=== PATIENT | female | born 1950 | race Caucasian/White ===

== ENCOUNTER → 2022-05-20 11:25 | Outpatient (BNVA) | payer MEDICARE, OTHER, SELFPAY | PROVIDERS: PCP Internal Medicine; Visit Provider Psychiatry & Neurology Neurology | DX: G47.33 Obstructive sleep apnea (adult) (pediatric) (principal) | CPT/HCPCS: 99212 ==

== ENCOUNTER 2023-05-14 09:24 | Outpatient (AMB) | payer MEDICARE, OTHER, SELFPAY ==
--- NOTE | 2023-05-14 09:29 | A.OFFVIS_ITS ---
Intake Vital Signs 05/14/23 09:31 Height 5 ft Weight 154 lb 4 oz BMI 30.1 BP 138/92 H Blood Pressure Location Rt brachial Position Sitting Respiration 16 Pulse 81 Pulse Source Pulse Oximeter Pulse Oximetry (%) 96 Oxygen Delivery Method Room Air Intake Visit Reasons: 1yr f/u RUSSELL - confirmed Intake Note: Pt presents to the office for 1 year follow up for RUSSELL. She reports shes feeling well. She stopped using her CPAP for a few weeks in February after surgery, she had a hernia repair. Residential Real Estate Assistant Required: No Allergies cat dander Allergy (Mild, Verified 05/14/23 09:30) Unknown codeine Adverse Reaction (Intermediate, Verified 05/14/23 09:30) Nausea and Vomiting erythromycin base Adverse Reaction (Intermediate, Verified 05/14/23 09:30) Nausea and Vomiting HPI HPI Comments History of Present Illness Details 72y/o female with sleep apnea comes fo r follow up. She is complaint with CPAP . I do not have the compliance report today Sleeps better with CPAP and daytime functioning has improved. Leg movements are better. [facility] Medical History HTN (hypertension) Surgical History (Updated 05/14/23 @ 09:37 by Kinga Saavedra CMA) History of cataract surgery H/O hernia repair Hx of appendectomy H/O: hysterectomy H/O lumpectomy Family History Father HTN (hypertension) Thyroid disease Mother HTN (hypertension) Heart disease Breast cancer Family/Other HTN (hypertension) Social History Alcohol intake: current Alcohol intake frequency: holidays/special occasions only Patient Tobacco Use Status: Former Tobacco user Quit Date: 1988 Questionnaire Short SAQLI Sleep Heart Health Study (Short SAQLI) How much of the time have you had to push yourself to remain alert during a typical day (e.g. work, school, childcare, housework)?: A small amount How often have you had to use all of your energy to accomplish your most important activity (e.g. work, school, childcare, housework)?: Never How much difficulty have you had finding the energy to do other activities (e.g. exercise, relaxing activities)?: No difficulty How much difficulty have you had fighting to stay awake?: A small amount How much of a problem has it been to be told that your snoring is irritating?: I do not snore How much of a problem have frequent conflicts or arguments been?: No problem How often have you looked for excuses for being tired?: Never How often have you not wanted to do things with your family and/or friends: Never How often have you felt depressed, down or hopeless?: Never How often have you been impatient?: A small amount of the time How much of a problem has it been to cope with every day issues?: No problem How much of a problem have you had with decreased energy?: No problem How much of a problem have you had with fatigue?: A small problem How much of a problem have you have waking up feeling refreshed?: No problem Total Score: 4 Review of Systems ENT Reports Normal hearing present Neuro Reports Normal hearing present Physical Exam Vital Signs: Last Vital Signs Pulse 81 05/14/23 09:31 Resp 16 05/14/23 09:31 BP 138/92 H 05/14/23 09:31 Pulse Ox 96 05/14/23 09:31 Oxygen Delivery Method Room Air 05/14/23 09:31 BMI result Body Mass Index 30.1 Const General: cooperative, healthy appearing and comfortable Nutritional Appearance: average body habitus Orientation/consciousness: patient oriented x3 Limitations: no limitations HEENT Head: Yes normal to inspection Neuro General: patient oriented x3, gait normal, tone normal, moves all extremities, no focal motor deficits and Unable to assess gait Cranial nerves: Yes Bilaterally intact EOM present, Yes Nystagmus not present, Yes Normal facial strength present, Yes Midline tongue present, Yes Symmetric palate elevation present, Yes Normal hearing present and Yes Ability to bilaterally elevate shoulders present Cognition (Neuro): normal cognition Gait exam (Neuro): Unable to assess gait Assessment & Plan Assessment & Plan (1) Obstructive sleep apnea: Code(s): G47.33 - Obstructive sleep apnea (adult) (pediatric) Plan Continue CPAP 5-20 cm of water compliance stressed Coding Level of Care Code Est Pt Level 4 (23559) Diagnoses Obstructive sleep apnea G47.33
[2023-05-14 09:31] VITALS: BP 138/92; PULSE 81; RESP 16; O2SAT 96; BMI 30.1
== END 2023-05-14 09:52 | disposition home or self-care (01) ==
PROVIDERS: Visit Provider Psychiatry & Neurology Neurology
DX: G47.33 Obstructive sleep apnea (adult) (pediatric) (principal)
CPT/HCPCS: 99214

== ENCOUNTER → 2023-05-14 09:24 | Outpatient (BNVA) | payer MEDICARE, OTHER, SELFPAY | PROVIDERS: Visit Provider Psychiatry & Neurology Neurology | DX: G47.33 Obstructive sleep apnea (adult) (pediatric) (principal) | CPT/HCPCS: 99212 ==

== ENCOUNTER 2024-05-20 10:19 | Outpatient (AMB) | payer MEDICARE, OTHER, SELFPAY ==
--- NOTE | 2024-05-20 10:36 | MHC.OFFVIS ---
Vital Signs 05/20/24 10:37 Height 4 ft 11 in Weight 161 lb BMI 32.5 Intake Visit Reasons: 1 yr f/u for RUSSELL Intake Note: Patient presents for RUSSELL follow up Allergies cat dander Allergy (Mild, Verified 05/20/24 10:37) Unknown codeine Adverse Reaction (Intermediate, Verified 05/20/24 10:37) Nausea and Vomiting erythromycin base Adverse Reaction (Intermediate, Verified 05/20/24 10:37) Nausea and Vomiting HPI Comments Details: 73 year old female with h/o HTN presents for a 1 year f/u of RUSSELL. She had a very stressful month, went to the ED b/c she had Palpitations, holter monitor to follow her arrhythmias per head of conservation. She was started on a SSRI 10mg daily per PCP for anxiety, and her mood has improved. She feels well now, her sleep is better. She does feel short of breath when she climbs stairs, no leg pain. She is a dancer (balet and gabriela chi daily). She goes to bed at 11pm wakes up at 8:00am with one bathroom break. She continues to have dry mouth in the morning, is a mouth breather, and concerned about her teeth per the dentist. She will try to adjust the settings for temperature of air on her device, and find liners that hold the chin taut closed. We discussed mouth guards that may help her with teeth sensitivity. Her memory is good, she drives, completes all her ADLs and stays active. Her diet is good, watches her sodium intake. She denies Headaches, Vision changes, Vertigo, nausea and vomiting. She cleans her mask, daily, changes filters as needed, uses distilled water in the reservoir. CPAP Report: >4hours total 82 days =91% Average Usage total = 6 hours and 56 min Pressures are 5cm - 20cm auto-set AHI is 0.4 serial # [id number] [facility] Medical History HTN (hypertension) Surgical History History of cataract surgery H/O hernia repair Hx of appendectomy H/O: hysterectomy H/O lumpectomy Family History Father HTN (hypertension) Thyroid disease Mother HTN (hypertension) Heart disease Breast cancer Family/Other HTN (hypertension) Social History Alcohol intake: current Alcohol intake frequency: holidays/special occasions only Patient Tobacco Use Status: Former Tobacco user Review of Systems Const All systems reviewed & are unremarkable except as noted in HPI and below Aller/Immun Details: Seasonal Allergies Physical Exam Vital Signs: BMI result Body Mass Index 32.5 Const General: cooperative, comfortable and no acute distress Nutritional Appearance: average body habitus and overweight Orientation/consciousness: patient oriented x3 HEENT Face and sinus: Yes normal facial exam and Yes face symmetric Eyes Pupils: Equal, round and reactive pupils present, Pupils normal by confrontation and Pupil accommodation reflex normal Neck Neck: Yes full ROM and Yes supple Resp Effort & Inspection: normal respiratory effort and able to speak in complete sentences Neuro General: patient oriented x3 and moves all extremities Cranial nerves: Yes CN's II-XII intact bilaterally, Yes Facial sensation intact/muscles of mastication intact, Yes Equal, round and reactive pupils present, Yes Normal accommodation reflex present, Yes Normal facial strength present, Yes Midline tongue present, Yes Symmetric palate elevation present, Yes Ability to bilaterally rotate head present and Yes Ability to bilaterally elevate shoulders present Motor exam (neuro): 5/5 motor strength present throughout and Normal motor muscle tone present throughout Deep tendon reflexes (DTR's): Right triceps reflex intensity grade: 2+, Left triceps reflex intensity grade: 2+, Rt Biceps (C5, C6): 2+, Left biceps reflex intensity grade: 2+, Right brachioradialis reflex intensity grade: 2+, Left brachioradialis reflex intensity grade: 2+, Right patellar reflex intensity grade: 2+ and Left patellar reflex intensity grade: 2+ Coordination: [id number] test normal Psych Appearance: grossly normal Attitude: cooperative Insight: Good insight present (Psych) Judgement: Good judgement present (Psych) Assessment & Plan Assessment & Plan (1) Obstructive sleep apnea: Code(s): G47.33 - Obstructive sleep apnea (adult) (pediatric) Category: Medical Plan: -She is compliant with her CPAP use and feeling great. -Emphasized to her about compliance as she has a h/o hypertension. -Continue use as patient is experiencing good clinical effects. -For sensitivity to teeth and dry mouth, encouraged her to look into finding a good mouth guard and liners for CPAP, to help hold her mouth closed at night and avoid dry mouth. Coding Level of Care Code Est Pt Level 3 (90653) Diagnoses Obstructive sleep apnea G47.33
[2024-05-20 10:37] VITALS: BMI 32.5
== END 2024-05-20 11:04 | disposition home or self-care (01) ==
PROVIDERS: Absent Provider Psychiatry & Neurology Neurology; PCP Internal Medicine; Visit Provider Physician Assistant Medical
DX: G47.33 Obstructive sleep apnea (adult) (pediatric) (principal)
CPT/HCPCS: 99213

== ENCOUNTER → 2024-05-20 10:19 | Outpatient (BNVA) | payer MEDICARE, OTHER, SELFPAY | PROVIDERS: Absent Provider Psychiatry & Neurology Neurology; PCP Internal Medicine; Visit Provider Physician Assistant Medical | DX: G47.33 Obstructive sleep apnea (adult) (pediatric) (principal); Z99.89 Dependence on other enabling machines and devices | CPT/HCPCS: 99212 ==

== ENCOUNTER 2025-05-23 10:21 | Outpatient (AMB) | payer MEDICARE, OTHER, SELFPAY ==
--- NOTE | 2025-05-23 10:39 | MHC.OFFVIS ---
Vital Signs 05/23/25 10:40 Height 4 ft 11 in Weight 166 lb BMI 33.5 BP 116/68 Blood Pressure Location Lt brachial Position Sitting Pulse 78 Pulse Source Pulse Oximeter Pulse Oximetry (%) 96 Oxygen Delivery Method Room Air Intake Visit Reasons: 1 yr f/u for RUSSELL - CONF. Intake Note: Patient presents follow up RUSSELL. Compliance in chart(85/90days, >=4hrs-77%, Average Usage-5hr 45min, Med Pressure-9.0, Med Leaks-0.2, AHI-0.5). Accompanied by: Self / Same As Patient Allergies cat dander Allergy (Mild, Verified 05/23/25 10:43) Unknown codeine Adverse Reaction (Intermediate, Verified 05/23/25 10:43) Nausea and Vomiting erythromycin base Adverse Reaction (Intermediate, Verified 05/23/25 10:43) Nausea and Vomiting HPI Comments Details: 73 year old female with h/o HTN presents for a 1 year f/u of RUSSELL. RUSSELL Compliance Report reviewed with pt Feb to May 2025. Total avg use is 85/90days, >=4hrs-77%, Avg daily use is 5hr 45min Med Pressure-9.0, Med Leaks-0.2, AHI-0.5/hr She washes her mask rinses her hoses, changes filters and fills machine with water. She sleeps better and has refreshed sleep with the new sleep nuzzle pillow for her c-spine. She is a side sleeper, uses the minimalist airfit p10 nasal pillows. She needs chin straps, her mouth falls opens at night and dries out. She is concerned about her teeth per the dentist. We discussed getting chin straps to close the mouth, using xylemelts to increase oral secretions, and adjusting humidity settings on her machine. We also discussed mouth guards that may help her with teeth sensitivity. She was started on alprazolam for anxiety, and only takes one when she feels claustrophobic. She has shortness of breath when she climbs stairs, denies leg pain, cramps. 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 Her memory is good, she drives, completes all her ADLs and stays active. Her diet is good, watches her sodium intake, hydrates. She denies headaches, vision changes, vertigo, acid reflux, gait, balance difficulties, nausea and vomiting. [facility] Medical History HTN (hypertension) Surgical History History of cataract surgery H/O hernia repair Hx of appendectomy H/O: hysterectomy H/O lumpectomy Family History Father HTN (hypertension) Thyroid disease Mother HTN (hypertension) Heart disease Breast cancer Family/Other HTN (hypertension) Social History Alcohol intake: current Alcohol intake frequency: holidays/special occasions only Patient Tobacco Use Status: Former Tobacco user Physical Exam Vital Signs: Last Vital Signs Pulse 78 05/23/25 10:40 BP 116/68 05/23/25 10:40 Pulse Ox 96 05/23/25 10:40 Oxygen Delivery Method Room Air 05/23/25 10:40 BMI result Body Mass Index 33.5 Const General: cooperative, comfortable and no acute distress Nutritional Appearance: average body habitus and overweight Orientation/consciousness: patient oriented x3 HEENT Face and sinus: Yes normal facial exam and Yes face symmetric Eyes Pupils: Equal, round and reactive pupils present, Pupils normal by confrontation and Pupil accommodation reflex normal Neck Neck: Yes full ROM and Yes supple Resp Effort & Inspection: normal respiratory effort and able to speak in complete sentences Neuro General: patient oriented x3 and moves all extremities Cranial nerves: Yes CN's II-XII intact bilaterally, Yes Facial sensation intact/muscles of mastication intact, Yes Equal, round and reactive pupils present, Yes Normal accommodation reflex present, Yes Normal facial strength present, Yes Midline tongue present, Yes Symmetric palate elevation present, Yes Ability to bilaterally rotate head present and Yes Ability to bilaterally elevate shoulders present Motor exam (neuro): 5/5 motor strength present throughout and Normal motor muscle tone present throughout Deep tendon reflexes (DTR's): Right triceps reflex intensity grade: 2+, Left triceps reflex intensity grade: 2+, Rt Biceps (C5, C6): 2+, Left biceps reflex intensity grade: 2+, Right brachioradialis reflex intensity grade: 2+, Left brachioradialis reflex intensity grade: 2+, Right patellar reflex intensity grade: 2+ and Left patellar reflex intensity grade: 2+ Coordination: [id number] test normal Psych Appearance: grossly normal Attitude: cooperative Insight: Good insight present (Psych) Judgement: Good judgement present (Psych) Assessment & Plan Assessment & Plan (1) Obstructive sleep apnea: Code(s): G47.33 - Obstructive sleep apnea (adult) (pediatric) Category: Medical Plan: RUSSELL Compliant on CPAP therapy and has refreshed sleep. Continue use and >4hours. For sensitivity to teeth and dry mouth, look into finding a mouth guard,- can refer her in future to sleep dentistry. -Try xylimelt tabs to increase oral secretions. -Chin straps to close the mouth and pull the chin close at night. -Adjust temperatures on the humidification settings on the cpap by 1-2 increments. -Purifier in bedroom to clean / sanitize the air of all pollutants, plant the cleans the air in the bedroom. Patient Instructions: second filter adapter- [facility], will f/u with [facility] for a second adapter filter, we discussed using an air purifier in the bedroom and getting a plant to clean the air, reduces pollutants and negative ions. chin strap new mask Coding Level of Care Code Est Pt Level 4 (73628) Diagnoses Obstructive sleep apnea G47.33
[2025-05-23 10:40] VITALS: BP 116/68; PULSE 78; O2SAT 96; BMI 33.5
== END 2025-05-23 11:18 | disposition home or self-care (01) ==
LOC: HO.HSMS 10:22
PROVIDERS: PCP Internal Medicine; Visit Provider Physician Assistant Medical
DX: G47.33 Obstructive sleep apnea (adult) (pediatric) (principal)
CPT/HCPCS: 99214

== ENCOUNTER → 2025-05-23 10:21 | Outpatient (BNVA) | payer MEDICARE, OTHER, SELFPAY | PROVIDERS: PCP Internal Medicine; Visit Provider Physician Assistant Medical | DX: G47.33 Obstructive sleep apnea (adult) (pediatric) (principal); Z99.89 Dependence on other enabling machines and devices | CPT/HCPCS: 99212 ==